=== PATIENT | male | born 1980 | race American Indian/Alaskan Native ===

== ENCOUNTER 2017-07-01 12:47 | Emergency (ER) | payer BC ==
[2017-07-01 14:35] VITALS: BP 138/96
--- NOTE | 2017-07-01 15:51 | Emergency Department Report ---
HPI - General Chief Complaint: Dental/Oral Time Seen by Provider: 07/01/17 15:50 - HPI HPI: Patient reported that he has a dental abscess as been ongoing for the last 2-3 days. He said he woke up with swelling today to his right facial area. Pain is 10 out of 10 and achy and worse with talking and eating. Denies any fever or chills. Denies any nausea or vomiting. Denies any sore throat, difficulty swallowing, swollen tongue or drooling. Denies any chest pain or shortness of breath. Denies any nasal congestion or sinus pain or pressure. Denies any headache. Patient said he took [id number] Motrin but it does not open. ED Past Medical Hx - Past Medical History Previous Medical History?: No - Surgical History Past Surgical History?: No - Family History Family history: no significant - Social History Smoking Status: Current Every Day Smoker Substance Use Type: None - Medications Home Medications: Home Medications Medication Instructions Recorded Confirmed Last Taken Type Acetaminophen/Codeine [Tylenol 1 tab PO Q6H PRN 5 Days #20 tab 07/01/17 Unknown Rx /Codeine # 3 tab] Ibuprofen [Motrin] 800 mg PO Q8HR PRN 7 Days #21 07/01/17 Unknown Rx tablet Penicillin V Potassium 500 mg PO Q8H 10 Days #30 tablet 07/01/17 Unknown Rx ED Review of Systems ROS: Stated complaint: MOUTH PAIN Other details as noted in HPI Comment: All other systems reviewed and negative Constitutional: no symptoms reported Eyes: denies: eye pain, eye discharge ENT: dental pain, other (dental abscess). denies: ear pain, throat pain, hearing loss, congestion Respiratory: no symptoms reported Cardiovascular: denies: chest pain, palpitations, edema, syncope Gastrointestinal: denies: abdominal pain, nausea, vomiting, diarrhea, constipation Musculoskeletal: denies: back pain, joint swelling, arthralgia, myalgia Skin: denies: rash Neurological: denies: headache, weakness, abnormal gait, vertigo Physical Exam - Physical Exam Vital Signs: Vital Signs 07/01/17 14:33 Temperature 98.7 F Pulse Rate 86 Respiratory 18 Rate Blood Pressure 138/96 O2 Sat by Pulse 100 Oximetry General: This is a 37-year-old male well-nourished well-developed in no acute distress Physical Exam: Head: Normocephalic, atraumatic, no abrasion, no bruising and no contusion. Eyes: Biateral pupils equal and reactive to light, bilateral EOM intact.. Bilateral conjunctival and sclera without injection, normal accommodation. No nystagmus Ears: Bilateral TMs pearly morales, bilateral nasal mucosa normal without any drainage. No maxillary or frontal sinus tenderness. No mastoid bone tenderness. Bilateral tract is nontender to palpate Mouth: Moist, no pharyngeal exudate or erythema. Uvula is midline and tongue is normal. Oral airways patent. Patient with mild gingival inflammation and tenderness to palpation around tooth #2 and 3. Positive induration and cellulitis induration noted. Positive facial swelling and multiple dental caries. Neck: Supple, No Cervical adenopathy, full range of motion and no C-spine tenderness. No swelling or tracheal deviation normal reflexes Cardiovascular: S1, S2. Regular rate and rhythm. No murmur. Capillary refill is less then 3 seconds. Lungs: Clear to auscultate bilaterally. No rhonchi, wheezes or rales. No chest wall tenderness Extremities: No clubbing, cyanosis or edema. +2 pulses. No neurovascular compromise Skin: Clean, dry and intact. No rash or lesions. ED Course Vital Signs 07/01/17 14:33 Temperature 98.7 F Pulse Rate 86 Respiratory 18 Rate Blood Pressure 138/96 O2 Sat by Pulse 100 Oximetry - Reevaluation(s) Reevaluation #1: 07/01/17 17:44 Patient given Rocephin 1 g IM without any adverse reaction. He was also given [place] 5/325 2 tablets by mouth in the emergency room for pain. 07/01/17 17:44 ED Medical Decision Making - Medical Decision Making ED course: She is here complaining of toothache and tooth abscess that is ongoing for the last 2-3 days but he said he is having right facial swelling when he woke up this morning. Complaining of pain to right upper back tooth tended to 10. Patient does not have a dentist. Physical findings for gingivitis, dental caries, tooth abscess. Patient with poor oral care and he does not visit a dentist. He said the last time he presented to dentist was years ago. I discussed with patient that he will need to follow-up with a dentist to fix underlying cause of dental abnormality. Patient was given Rocephin 1 g IM in the emergency room, [place] 5/325 2 tablets by mouth and will be referred to [facility] for further management. Patient discharged home in stable condition with prescription for penicillin VK, Tylenol No. 3 and Motrin. Critical care attestation.: If time is entered above; I have spent that time in minutes in the direct care of this critically ill patient, excluding procedure time. ED Disposition Clinical Impression: Dental abscess, Toothache, Dental caries, Gingivitis Disposition: TO HOME OR SELFCARE Is pt being admited?: No Does the pt Need Aspirin: No Condition: Stable Instructions: Dental Abscess (ED), Toothache (ED), Dental Caries (ED), Gingivitis (ED) Additional Instructions: You have gum disease, dental caries and tooth abscess which is cause by poor oral care. Please gargle with Listerine twice daily, please floss twice daily and take antibiotic as prescribed. You will need to follow-up with [facility] for further evaluation and treatment of multiple dental abnormalities. Please refer to discharge instruction paperwork for phone number and address. Reason not drive or operate heavy machinery while taking in Tylenol No. 3 as this medication causes drowsiness Prescriptions: Acetaminophen/Codeine [Tylenol /Codeine # 3 tab] 1 tab PO Q6H PRN 5 Days #20 tab PRN Reason: Toothache Ibuprofen [Motrin] 800 mg PO Q8HR PRN 7 Days #21 tablet PRN Reason: Pain Penicillin V Potassium 500 mg PO Q8H 10 Days #30 tablet Referrals: PRIMARY CARE, [Primary Care Provider] - 2-3 Days [facility] [Outside] - 2-3 Days Forms: Work/School Release Form(ED), Accompanied Note
[2017-07-01] MEDS ORDERED: XYLOCAINE 1% MPF 5 mL INFILTRATI ONE (16:14)
[2017-07-01] MEDS ORDERED: ROCEPHIN IM STA (16:14)
[2017-07-01] MEDS ORDERED: NORCO 5/325 PO ONE (16:15)
== END 2017-07-01 18:03 | disposition home or self-care (01) ==
LOC: ED 12:47
DX: K04.7 Periapical abscess without sinus (principal); K02.9 Dental caries, unspecified; K05.10 Chronic gingivitis, plaque induced; F17.200 Nicotine dependence, unspecified, uncomplicated
CPT/HCPCS: 96372; 99282; J0696

== ENCOUNTER 2020-10-07 07:00 | Inpatient (IN) | payer BC ==
[2020-10-07] MEDS ORDERED: ONDANSETRON 4 MG/2 ML INJ IV ONE (07:25)
[2020-10-07] MEDS ORDERED: PANTOPRAZOLE 40 MG INJ IV ONE (07:25)
[2020-10-07] MEDS ORDERED: HYDROmorphone 1 MG/1 ML INJ IV ONE ×2 (07:25→08:43)
--- NOTE | 2020-10-07 07:29 | Emergency Department Report ---
ED Abdominal Pain HPI - General Chief Complaint: Abdominal Pain Stated Complaint: NERISSA/ABD PAIN PUI?: No Time Seen by Provider: 10/07/20 07:24 Source: patient Mode of arrival: Ambulatory Limitations: No Limitations - History of Present Illness Initial Comments: Chief complaint: "I think my pancreas is acting up." HPI: This is a 40-year-old male with history of pancreatitis and DVT who presents with epigastric pain for the last 2 days. Pain is severe sharp radiating to the back. He also has abdominal bloating. Pain also radiates to the chest. He has nausea. Poor appetite. He had one flareup of pancreatitis 1 year ago. At that time told him that it was alcohol related. He continues to binge drink on the weekends. However he does not drink daily. He does drink a copious amount of alcohol when he does have a binge. Patient thinks his poor diet may have caused pancreatitis flareup. He had fried food recently. He does not take any medications. He was not prescribed anticoagulation when he was discharged from the hospital. He was admitted to [facility] for pancreatitis last year. At that time he underwent 2 surgeries at the back of his knees for "blood clots". Patient does smoke tobacco. He denies the use of recreational drugs. He does not have a PCP. He works as a trash truck driver. Complaint: abdominal pain -: Gradual, days(s) (2 days) Location: epigastric Radiation: back, chest Severity: severe Severity scale (0 -10): 10 Quality: aching, sharp Consistency: constant Improves With: nothing Worsens With: nothing Associated Symptoms: nausea, anorexia - Related Data Previous Rx's Medication Instructions Recorded Last Taken Type Acetaminophen/Codeine [Tylenol 1 tab PO Q6H PRN 5 Days #20 tab 07/01/17 Unknown Rx /Codeine # 3 tab] Ibuprofen [Motrin] 800 mg PO Q8HR PRN 7 Days #21 07/01/17 Unknown Rx tablet Penicillin V Potassium 500 mg PO Q8H 10 Days #30 tablet 07/01/17 Unknown Rx Allergies Allergy/AdvReac Type Severity Reaction Status Date / Time No Known Allergies Allergy Unverified 07/01/17 14:35 ED Review of Systems ROS: Stated complaint: NERISSA/ABD PAIN Other details as noted in HPI Comment: All other systems reviewed and negative Constitutional: denies: chills, fever, malaise Respiratory: denies: cough, shortness of breath Gastrointestinal: abdominal pain, nausea. denies: diarrhea, constipation ED Past Medical Hx - Past Medical History Previous Medical History?: Yes Additional medical history: Pancreatitis. blood clot - Surgical History Past Surgical History?: Yes Additional Surgical History: To remove blood clot 03/2020 - Family History Family history: hypertension - Social History Smoking Status: Current Every Day Smoker Substance Use Type: Alcohol - Medications Home Medications: Home Medications Medication Instructions Recorded Confirmed Last Taken Type Acetaminophen/Codeine [Tylenol 1 tab PO Q6H PRN 5 Days #20 tab 07/01/17 Unknown Rx /Codeine # 3 tab] Ibuprofen [Motrin] 800 mg PO Q8HR PRN 7 Days #21 07/01/17 Unknown Rx tablet Penicillin V Potassium 500 mg PO Q8H 10 Days #30 tablet 07/01/17 Unknown Rx ED Physical Exam - General Limitations: No Limitations General appearance: alert, in no apparent distress - Head Head exam: Present: atraumatic, normocephalic - Eye Eye exam: Present: normal appearance - ENT ENT exam: Present: mucous membranes moist - Neck Neck exam: Present: normal inspection, full ROM - Respiratory Respiratory exam: Present: normal lung sounds bilaterally. Absent: respiratory distress, wheezes, rhonchi - Cardiovascular Cardiovascular Exam: Present: regular rate, normal rhythm, normal heart sounds. Absent: systolic murmur, diastolic murmur, rubs, gallop - GI/Abdominal GI/Abdominal exam: Present: soft, normal bowel sounds. Absent: distended, tenderness, guarding, rebound - Rectal Rectal exam: Present: deferred - Extremities Exam Extremities exam: Present: normal inspection - Neurological Exam Neurological exam: Present: alert, oriented X3 - Psychiatric Psychiatric exam: Present: normal affect, normal mood - Skin Skin exam: Present: warm, dry, intact, normal color. Absent: rash ED Course Vital Signs 10/07/20 10/07/20 10/07/20 07:09 08:32 09:47 Temperature 97.6 F 98.2 F Pulse Rate 117 H 88 82 Respiratory 18 24 18 Rate Blood Pressure 139/99 Blood Pressure 117/88 121/84 [Left] O2 Sat by Pulse 100 97 100 Oximetry ED Medical Decision Making - Lab Data Result diagrams: 10/07/20 07:46 10/07/20 07:46 - Radiology Data Radiology results: report reviewed, image reviewed CT abdomen pelvis with IV contrast radiology impression: Acute severe pancreatitis as above with a probable pseudocyst along the pancreatic head/uncinate process and no other associated complication Pancreas findings: Generalized edema is noted on the prior periods with marked surrounding fat stranding. A simple cystic structure is seen along the pancreatic head/uncinate processs measuring up to 2.8 cm x 2.6 cm, no internal gas or suspicious peripheral enhancement is seen to suggest an abscess. A pseudocyst is favored. Peripancreatic edema/inflammation extends along the anterior pararenal spaces and along the pericolic gutters. HERNANDO Score 0-1: LDH not obtained with initial labs - Medical Decision Making 1. Acute pancreatitis with pseudocyst presumably initially alcoholic in etiology with history of binge drinking. Patient has severe pain. Markedly elevated lipase 1028. Hepatic panel otherwise unremarkable with exception of mild hyporproteinemia hypoalbuminemia 2. Dehydration noted with severe volume contraction elevated hemoglobin elevated hematocrit, hyponatremia, hypokalemia hypochloremia. Critical care attestation.: If time is entered above; I have spent that time in minutes in the direct care of this critically ill patient, excluding procedure time. ED Disposition Clinical Impression: Acute pancreatitis, Acute dehydration, Pancreatic pseudocyst Disposition: OP ADMIT IP TO THIS HOSP Is pt being admited?: Yes Does the pt Need Aspirin: No Condition: Fair
[2020-10-07 08:19] LABS: Basophils % (Auto) 0.1 % (0.0-1.8); Eosinophils # (Auto) 0.1 K/mm3 (0.0-0.4); Eosinophils % (Auto) 1.1 % (0.0-4.3); Hematocrit 49.5 % (35.5-45.6); Hemoglobin 16.8 gm/dl (11.8-15.2); Lymphocytes # (Auto) 0.7 K/mm3 (1.2-5.4); Lymphocytes % (Auto) 6.3 % (13.4-35.0); Mean Corpuscular HGB Conc 34 % (32-34); Mean Corpuscular Volume 97 fl (84-94); Monocytes # (Auto) 0.6 K/mm3 (0.0-0.8); Monocytes % (Auto) 4.9 % (0.0-7.3); Platelet Count 298 K/mm3 (140-440); Red Blood Count 5.13 M/mm3 (3.65-5.03); Red Cell Distribution Width 16.2 % (13.2-15.2)
[2020-10-07 08:36] LABS: Alanine Aminotransferase 19 units/L (7-56); Albumin 3.7 g/dL (3.9-5); BUN/Creatinine Ratio 6; Bilirubin,Direct < 0.2 mg/dL (0-0.2); Blood Urea Nitrogen 5 mg/dL (9-20); Calcium 8.9 mg/dL (8.4-10.2); Hemolysis Index 12
[2020-10-07] MEDS ORDERED: SODIUM CHLORIDE 0.9% 1000 ML 1,000 ML IV ONE (08:41)
--- NOTE | 2020-10-07 09:51 | Cat Scan Report ---
CT ABDOMEN AND PELVIS WITH CONTRAST INDICATION / CLINICAL INFORMATION: Epigastric pain, history of pancreatitis. TECHNIQUE: Axial CT images were obtained through the abdomen and pelvis after 100 cc Omnipaque [address] scans at this location are performed using CT dose reduction for ALARA by means of automated exposure control. COMPARISON: None available. FINDINGS: LOWER CHEST: Mild dependent atelectasis is noted bilaterally without other significant abnormalities. LIVER: No significant abnormality. GALLBLADDER: No significant abnormality. BILE DUCTS: No significant abnormality. PANCREAS: Generalized edema is noted along the pancreas with marked surrounding fat stranding. A simp le cystic structure is seen along the pancreatic head/uncinate process measuring up to 2.8 x 2.6 cm i n axial dimensions on image 28 of series 4 with a craniocaudal dimension of 5.4 cm on image 59 of ser ies 601. No internal gas or suspicious peripheral enhancement is seen to suggest an abscess. A pseudo cyst is favored. Peripancreatic edema/inflammation extends along the anterior pararenal spaces and al carlton the paracolic gutters. No other significant abnormality. SPLEEN: No significant abnormality. ADRENALS: No significant abnormality. RIGHT KIDNEY / URETER: No significant abnormality. LEFT KIDNEY / URETER: No significant abnormality. STOMACH / SMALL BOWEL: No significant abnormality. COLON: No significant abnormality. APPENDIX: No significant abnormality. PERITONEUM: No free fluid. No free air. No fluid collection. LYMPH NODES: No significant adenopathy. AORTA / ARTERIES: Mild generalized atherosclerosis without other significant abnormalities. IVC / VEINS: No significant abnormality. URINARY BLADDER: No significant abnormality. REPRODUCTIVE ORGANS: No significant abnormality. ADDITIONAL FINDINGS: None. SKELETAL SYSTEM: No significant abnormality. IMPRESSION: Acute severe pancreatitis as above with a probable pseudocyst along the pancreatic head/uncinate proc ess and no other associated complication. Signer Name: Jose Schroeder MD Signed: 10/07/2020 9:46 AM Workstation Name: [id number]
[2020-10-07] MEDS ORDERED: HYDROmorphone 1 MG/1 ML INJ ONE (11:43)
[2020-10-07] MEDS: HYDROmorphone 1 MG/1 ML INJ IV PRN (11:58)
[2020-10-07] MEDS ORDERED: KETOROLAC 30 MG/1 ML INJ IV ONE (12:09)
--- NOTE | 2020-10-07 13:23 | History and Physical Report ---
History of Present Illness Date of examination: 10/07/20 Date of admission: 10/07/20 10:27 Chief complaint: Abdominal pain and bloating for the last 2 days History of present illness: 40-year-old male with history of pancreatitis and DVT who presents with epigastric pain for the last 2 days. Pain is severe sharp radiating to the back. He also has abdominal bloating. Pain also radiates to the chest. He has nausea. Poor appetite. He had one flareup of pancreatitis 1 year ago. At that time told him that it was alcohol related. He continues to binge drink on the weekends. However he does not drink daily. He does drink a copious amount of alcohol when he does have a binge. Patient thinks his poor diet may have caused pancreatitis flareup. He had fried food recently. He does not take any medications. He was not prescribed anticoagulation when he was discharged from the hospital. He was admitted to [facility] for pancreatitis last year. At that time he underwent 2 surgeries at the back of his knees for "blood clots". Patient does smoke tobacco. He denies the use of recreational drugs. He does not have a PCP. He works as a courier delivery driver. Initial evaluation in the emergency room is consistent with severe acute pancrea titis, elevated lipase CT abdomen, acute pancreatitis with possible pseudocyst Patient has history of pancreatitis in the past Past History Past Medical History: DVT (History of DVT), other (History of pancreatitis) Past Surgical History: Other (Removal of blood clots 2020) Social history: smoking. denies: alcohol abuse, prescription drug abuse Family history: no significant family history Medications and Allergies Allergies Allergy/AdvReac Type Severity Reaction Status Date / Time No Known Allergies Allergy Unverified 07/01/17 14:35 Home Medications Medication Instructions Recorded Confirmed Last Taken Type Acetaminophen/Codeine [Tylenol 1 tab PO Q6H PRN 5 Days #20 tab 07/01/17 Unknown Rx /Codeine # 3 tab] Ibuprofen [Motrin] 800 mg PO Q8HR PRN 7 Days #21 07/01/17 Unknown Rx tablet Penicillin V Potassium 500 mg PO Q8H 10 Days #30 tablet 07/01/17 Unknown Rx Active Meds: Active Medications Hydromorphone HCl (Hydromorphone 1 Mg/1 Ml Inj) 0.5 mg IV ONCE PRN PRN Reason: Pain , Severe (7-10) Review of Systems Constitutional: no weight loss, no weight gain, no fever, no chills Ears, nose, mouth and throat: no nasal congestion, no nasal discharge Cardiovascular: no chest pain, no palpitations Respiratory: no cough, no shortness of breath Gastrointestinal: abdominal pain, nausea, vomiting Genitourinary Male: no dysuria, no hematuria Musculoskeletal: no myalgias, no arthritis Integumentary: no rash, no lesions Neurological: no seizures, no syncope Psychiatric: no anxiety, no depression Endocrine: no cold intolerance, no heat intolerance Hematologic/Lymphatic: no easy bruising, no easy bleeding Allergic/Immunologic: no urticaria, no allergic rhinitis Exam - Constitutional Vitals: Temp Pulse Resp BP Pulse Ox 98.1 F 104 H 18 142/92 98 10/07/20 12:05 10/07/20 12:05 10/07/20 12:05 10/07/20 12:05 10/07/20 12:05 General appearance: Present: no acute distress, well-nourished - EENT Eyes: Present: PERRL, EOM intact - Neck Neck: Present: supple, normal ROM - Respiratory Respiratory effort: normal Respiratory: bilateral: diminished, negative: rales, rhonchi, wheezing - Cardiovascular Rhythm: regular Heart Sounds: Present: S1 & S2 - Extremities Extremities: no ischemia, No edema - Abdominal General gastrointestinal: Present: soft, tender (No guarding no rigidity), non- distended, normal bowel sounds - Integumentary Integumentary: Present: clear, warm - Musculoskeletal Musculoskeletal: strength equal bilaterally - Psychiatric Psychiatric: appropriate mood/affect, cooperative - Neurologic Neurologic: CNII-XII intact, moves all extremities Results - Labs CBC & Chem 7: 10/07/20 07:46 10/07/20 07:46 Labs: Abnormal lab results 10/07/20 10/07/20 Range/Units 07:46 07:46 WBC 11.7 H (4.5-11.0) K/mm3 RBC 5.13 H (3.65-5.03) M/mm3 Hgb 16.8 H (11.8-15.2) gm/dl Hct 49.5 H (35.5-45.6) % MCV 97 H (84-94) fl MCH 33 H (28-32) pg RDW 16.2 H (13.2-15.2) % Lymph % (Auto) 6.3 L (13.4-35.0) % Lymph # (Auto) 0.7 L (1.2-5.4) K/mm3 Seg Neutrophils % 87.6 H (40.0-70.0) % Seg Neutrophils # 10.3 H (1.8-7.7) K/mm3 Sodium 134 L (137-145) mmol/L Potassium 3.2 L (3.6-5.0) mmol/L Chloride 96.1 L (98-107) mmol/L BUN 5 L (9-20) mg/dL Glucose 126 H (75-100) mg/dL Total Protein 6.2 L (6.3-8.2) g/dL Albumin 3.7 L (3.9-5) g/dL Lipase 1028 H (13-60) units/L Assessment and Plan --Severe acute pancreatitis; N.p.o., IV fluids, pain medications Check abdominal ultrasound to rule out Gallbladder pancreatitis GI consult --Possible pancreatic pseudocyst; Supportive care, GI and surgery consult --Hyponatremia; Normal saline IV fluids Closely monitor electrolytes --Hypokalemia; Replenish with KCl Monitor electrolytes --Leukocytosis; Due to inflammatory process acute pancreatitis Closely monitor --Dehydration; IV fluids, supportive care --Polycythemia Elevated H&H Probably secondary to dehydration Closely monitor --Ongoing tobacco use; Smoking cessation Nicotine patch as needed Closely monitor patient and adjust management as needed Plan of care reviewed with the patient and his nurse
[2020-10-07] MEDS ORDERED: ONDANSETRON 4 MG/2 ML INJ IV PRN (16:00)
[2020-10-07] MEDS: MORPHINE 2 MG/1 ML INJ IV PRN ×2 (16:40→20:54)
[2020-10-07] MEDS: SODIUM CHLORIDE 0.9% 1000 ML 1,000 ML IV SCH (16:41)
--- NOTE | 2020-10-07 20:00 | Consultation ---
History of Present Illness Consult date: 10/07/20 Reason for consult: abdominal pain - History of present illness History of present illness: 40 yo male with 2 day h/o epigastric pain radiating to his back. He has had similar pain one year ago and this was attributed to alcoholic pancreatitis. Pt continues to drink but he states he has not had any alcohol for 3 weeks. He denies any h/o gallbladder disease, familial pancreatitis, hypertriglyceridemia or thiazide drug use. Last BM was yesterday. He is not hungry and doesn't want liquids right now. Past History Past Medical History: DVT (History of DVT), other (History of pancreatitis) Past Surgical History: Other (Removal of blood clots 2019) Social history: smoking. denies: alcohol abuse, prescription drug abuse Family history: no significant family history Medications and Allergies Allergies Allergy/AdvReac Type Severity Reaction Status Date / Time No Known Allergies Allergy Unverified 07/01/17 14:35 Home Medications Medication Instructions Recorded Confirmed Last Taken Type Acetaminophen/Codeine [Tylenol 1 tab PO Q6H PRN 5 Days #20 tab 07/01/17 Unknown Rx /Codeine # 3 tab] Ibuprofen [Motrin] 800 mg PO Q8HR PRN 7 Days #21 07/01/17 Unknown Rx tablet Penicillin V Potassium 500 mg PO Q8H 10 Days #30 tablet 07/01/17 Unknown Rx Active Meds: Active Medications Hydromorphone HCl (Hydromorphone 1 Mg/1 Ml Inj) 0.5 mg IV ONCE PRN PRN Reason: Pain , Severe (7-10) Sodium Chloride (Nacl 0.9% 1000 Ml) 1,000 mls @ 100 mls/hr IV DIRECT LALITA Last Admin: 10/07/20 16:41 Dose: 100 mls/hr Documented by: Morphine Sulfate (Morphine 2 Mg/1 Ml Inj) 2 mg IV Q4H PRN PRN Reason: Pain, Moderate (4-6) Last Admin: 10/07/20 16:40 Dose: 2 mg Documented by: Ondansetron HCl (Ondansetron 4 Mg/2 Ml Inj) 4 mg IV Q4H PRN PRN Reason: Nausea And Vomiting Pantoprazole Sodium (Pantoprazole 40 Mg Inj) 40 mg IV QDAY LALITA Review of Systems All systems: negative (There is no prior h/o DT's.) Exam Vital Signs Temp Pulse Resp BP Pulse Ox 97.6 F 117 H 18 139/99 100 10/07/20 07:09 10/07/20 07:09 10/07/20 07:09 10/07/20 07:09 10/07/20 07:09 - General physical appearance Positive: well developed, well nourished, no distress - Eyes Positive: PERRL, normal occular movement - ENT Positive: normal pinna, normal nares, normal mucosa, no hearing loss, no congestion - Neck Positive: no masses, no bruits, trachea midline, no venous distension - Respiratory Positive: normal expansion, normal respiratory effort, clear to auscultation - Cardiovascular Rhythm: regular Heart Sounds: Present: S1 & S2. Absent: rub, click - Extremities Extremities: no ischemia, pulses symmetrical, No edema - Breasts Breasts: normal, no mass, no skin changes - Abdomen Abdomen: Present: soft, bowel sounds hypoactive (There is mild epigastric tenderness without rebound or guarding.). Absent: distended Hernia: none - Genitourinary Male Genitourinary: normal Female Genitourinary: normal - Integumentary no rash, no growths, no abnormal pigmentation - Neurologic Neurologic: alert and oriented to time, place and person, motor strength and sensation are grossly intact - Musculoskeletal normal gait, normal posture - Psychiatric Psychiatric: appropriate mood/affect, intact judgment & insight Results - Labs 10/07/20 07:46 10/07/20 07:46 Abnormal lab results 10/07/20 10/07/20 Range/Units 07:46 07:46 WBC 11.7 H (4.5-11.0) K/mm3 RBC 5.13 H (3.65-5.03) M/mm3 Hgb 16.8 H (11.8-15.2) gm/dl Hct 49.5 H (35.5-45.6) % MCV 97 H (84-94) fl MCH 33 H (28-32) pg RDW 16.2 H (13.2-15.2) % Lymph % (Auto) 6.3 L (13.4-35.0) % Lymph # (Auto) 0.7 L (1.2-5.4) K/mm3 Seg Neutrophils % 87.6 H (40.0-70.0) % Seg Neutrophils # 10.3 H (1.8-7.7) K/mm3 Sodium 134 L (137-145) mmol/L Potassium 3.2 L (3.6-5.0) mmol/L Chloride 96.1 L (98-107) mmol/L BUN 5 L (9-20) mg/dL Glucose 126 H (75-100) mg/dL Total Protein 6.2 L (6.3-8.2) g/dL Albumin 3.7 L (3.9-5) g/dL Lipase 1028 H (13-60) units/L Diabetes panel 10/07/20 Range/Units 07:46 Sodium 134 L (137-145) mmol/L Potassium 3.2 L (3.6-5.0) mmol/L Chloride 96.1 L (98-107) mmol/L Carbon Dioxide 29 (22-30) mmol/L BUN 5 L (9-20) mg/dL Creatinine 0.8 (0.8-1.3) mg/dL Glucose 126 H (75-100) mg/dL Calcium 8.9 (8.4-10.2) mg/dL AST 10 (5-40) units/L ALT 19 (7-56) units/L Alkaline Phosphatase 116 (35-129) units/L Total Protein 6.2 L (6.3-8.2) g/dL Albumin 3.7 L (3.9-5) g/dL Calcium panel 10/07/20 Range/Units 07:46 Calcium 8.9 (8.4-10.2) mg/dL Albumin 3.7 L (3.9-5) g/dL Pituitary panel 10/07/20 Range/Units 07:46 Sodium 134 L (137-145) mmol/L Potassium 3.2 L (3.6-5.0) mmol/L Chloride 96.1 L (98-107) mmol/L Carbon Dioxide 29 (22-30) mmol/L BUN 5 L (9-20) mg/dL Creatinine 0.8 (0.8-1.3) mg/dL Glucose 126 H (75-100) mg/dL Calcium 8.9 (8.4-10.2) mg/dL Adrenal panel 10/07/20 Range/Units 07:46 Sodium 134 L (137-145) mmol/L Potassium 3.2 L (3.6-5.0) mmol/L Chloride 96.1 L (98-107) mmol/L Carbon Dioxide 29 (22-30) mmol/L BUN 5 L (9-20) mg/dL Creatinine 0.8 (0.8-1.3) mg/dL Glucose 126 H (75-100) mg/dL Calcium 8.9 (8.4-10.2) mg/dL Total Bilirubin 0.50 (0.1-1.2) mg/dL AST 10 (5-40) units/L ALT 19 (7-56) units/L Alkaline Phosphatase 116 (35-129) units/L Total Protein 6.2 L (6.3-8.2) g/dL Albumin 3.7 L (3.9-5) g/dL - Imaging CT scan - abdomen: report reviewed CT scan - pelvis: report reviewed Additional studies: Lipase was 1,000. Assessment and Plan - Patient Problems (1) Chronic alcoholic pancreatitis Current Visit: Yes Status: Acute Plan to address problem: 1) NPO for now 2) Pt was informed that if he continues to drink, it could result in significant morbidity and even . 3) Antibiotics and surgery are not indicated at this time.
[2020-10-07] MEDS ORDERED: LORazepam 2 MG/ML VIAL IV ONE (22:07)
[2020-10-08] MEDS: MORPHINE 2 MG/1 ML INJ IV PRN ×5 (00:19→20:23)
[2020-10-08] MEDS: SODIUM CHLORIDE 0.9% 1000 ML 1,000 ML IV SCH ×2 (04:32→17:49)
[2020-10-08 06:16] LABS: Basophils % (Auto) 0.3 % (0.0-1.8); Eosinophils # (Auto) 0.3 K/mm3 (0.0-0.4); Eosinophils % (Auto) 2.7 % (0.0-4.3); Hematocrit 45.8 % (35.5-45.6); Hemoglobin 15.6 gm/dl (11.8-15.2); Lymphocytes # (Auto) 0.8 K/mm3 (1.2-5.4); Lymphocytes % (Auto) 6.5 % (13.4-35.0); Mean Corpuscular HGB Conc 34 % (32-34); Mean Corpuscular Volume 95 fl (84-94); Monocytes # (Auto) 0.9 K/mm3 (0.0-0.8); Monocytes % (Auto) 6.9 % (0.0-7.3); Platelet Count 297 K/mm3 (140-440); Red Blood Count 4.83 M/mm3 (3.65-5.03); Red Cell Distribution Width 16.4 % (13.2-15.2)
[2020-10-08 06:39] LABS: Alanine Aminotransferase 11 units/L (7-56); Blood Urea Nitrogen 7 mg/dL (9-20); Calcium 8.3 mg/dL (8.4-10.2); Hemolysis Index 4
[2020-10-08 07:01] LABS: BUN/Creatinine Ratio 10
[2020-10-08] MEDS: PANTOPRAZOLE 40 MG INJ IV SCH (11:16)
--- NOTE | 2020-10-08 11:51 | Progress Note ---
Assessment and Plan - Patient Problems (1) Chronic alcoholic pancreatitis Current Visit: Yes Status: Acute Plan to address problem: 1) Sips of clear liquids 2) I again told the pt that he CANNOT drink in the future. Subjective Date of service: 10/08/20 Patient Reports: Positive: no new complaints (Abdominal pain is about the same. Has minimal nausea without vomiting.) Objective Vital Signs - 12hr 10/08/20 10/08/20 00:55 04:30 Temperature 99 F 98.4 F Pulse Rate 110 H 91 H Respiratory 18 18 Rate Blood Pressure 139/97 134/95 [Left] O2 Sat by Pulse 98 98 Oximetry - Abdomen soft, bowel sounds hypoactive (+ minimal epigastric tenderness without rebound or guarding.) - Labs 10/08/20 06:05 10/08/20 06:05 Diabetes panel 10/08/20 Range/Units 06:05 Sodium 136 L (137-145) mmol/L Potassium 3.5 L (3.6-5.0) mmol/L Chloride 100.0 (98-107) mmol/L Carbon Dioxide 28 (22-30) mmol/L BUN 7 L (9-20) mg/dL Creatinine 0.7 L (0.8-1.3) mg/dL Glucose 123 H (75-100) mg/dL Calcium 8.3 L (8.4-10.2) mg/dL AST 7 (5-40) units/L ALT 11 (7-56) units/L Alkaline Phosphatase 100 (35-129) units/L Total Protein 5.8 L (6.3-8.2) g/dL Albumin 3.0 L (3.9-5) g/dL Calcium panel 10/08/20 Range/Units 06:05 Calcium 8.3 L (8.4-10.2) mg/dL Albumin 3.0 L (3.9-5) g/dL Pituitary panel 10/08/20 Range/Units 06:05 Sodium 136 L (137-145) mmol/L Potassium 3.5 L (3.6-5.0) mmol/L Chloride 100.0 (98-107) mmol/L Carbon Dioxide 28 (22-30) mmol/L BUN 7 L (9-20) mg/dL Creatinine 0.7 L (0.8-1.3) mg/dL Glucose 123 H (75-100) mg/dL Calcium 8.3 L (8.4-10.2) mg/dL Adrenal panel 10/08/20 Range/Units 06:05 Sodium 136 L (137-145) mmol/L Potassium 3.5 L (3.6-5.0) mmol/L Chloride 100.0 (98-107) mmol/L Carbon Dioxide 28 (22-30) mmol/L BUN 7 L (9-20) mg/dL Creatinine 0.7 L (0.8-1.3) mg/dL Glucose 123 H (75-100) mg/dL Calcium 8.3 L (8.4-10.2) mg/dL Total Bilirubin 0.40 (0.1-1.2) mg/dL AST 7 (5-40) units/L ALT 11 (7-56) units/L Alkaline Phosphatase 100 (35-129) units/L Total Protein 5.8 L (6.3-8.2) g/dL Albumin 3.0 L (3.9-5) g/dL
--- NOTE | 2020-10-08 12:15 | Progress Note ---
Assessment and Plan Assessment and plan: --Severe acute pancreatitis; N.p.o., IV fluids, pain medications Check abdominal ultrasound to rule out Gallstone pancreatitis Lipase amylase trending down Follow GI evaluation and recommendations --Possible pancreatic pseudocyst; Supportive care, GI and surgery consult Surgery evaluation noted and appreciated --Hyponatremia; Normal saline IV fluids Mild improvement of sodium levels closely monitor --Hypokalemia; Replenish with KCl Monitor electrolytes --Leukocytosis; Due to inflammatory process acute pancreatitis Treat the underlying cause --Dehydration; IV fluids, supportive care --Polycythemia Elevated H&H Probably secondary to dehydration Mild improvement --Ongoing tobacco use; Smoking cessation Nicotine patch as needed Closely monitor patient and adjust management as needed Plan of care reviewed with the patient and his nurse History Interval history: I have seen and examined the patient at the bedside Patient's chart and medications reviewed Surgery evaluation and recommendations noted and appreciated Started the patient on clear liquids Patient continues to have abdominal pain Lipase and amylase trending down Vital signs noted Hospitalist Physical - Constitutional Vitals: Temp Pulse Resp BP Pulse Ox 98.4 F 91 H 18 134/95 98 10/08/20 04:30 10/08/20 04:30 10/08/20 04:30 10/08/20 04:30 10/08/20 04:30 General appearance: Present: no acute distress, well-nourished - EENT Eyes: Present: PERRL, EOM intact - Neck Neck: Present: supple, normal ROM - Respiratory Respiratory effort: normal Respiratory: bilateral: diminished, negative: rales, rhonchi, wheezing - Cardiovascular Rhythm: regular Heart Sounds: Present: S1 & S2 - Extremities Extremities: no ischemia, No edema - Abdominal General gastrointestinal: soft, tender (No guarding rigidity), non-distended, normal bowel sounds - Integumentary Integumentary: Present: clear, warm - Psychiatric Psychiatric: appropriate mood/affect, cooperative - Neurologic Neurologic: moves all extremities Results - Labs CBC & Chem 7: 10/08/20 06:05 10/08/20 06:05 Labs: Laboratory Last Values WBC 12.7 K/mm3 (4.5-11.0) H 10/08/20 06:05 RBC 4.83 M/mm3 (3.65-5.03) 10/08/20 06:05 Hgb 15.6 gm/dl (11.8-15.2) H 10/08/20 06:05 Hct 45.8 % (35.5-45.6) H 10/08/20 06:05 MCV 95 fl (84-94) H 10/08/20 06:05 MCH 32 pg (28-32) 10/08/20 06:05 MCHC 34 % (32-34) 10/08/20 06:05 RDW 16.4 % (13.2-15.2) H 10/08/20 06:05 Plt Count 297 K/mm3 (140-440) 10/08/20 06:05 Lymph % (Auto) 6.5 % (13.4-35.0) L 10/08/20 06:05 [place] % (Auto) 6.9 % (0.0-7.3) 10/08/20 06:05 Eos % (Auto) 2.7 % (0.0-4.3) 10/08/20 06:05 Baso % (Auto) 0.3 % (0.0-1.8) 10/08/20 06:05 Lymph # (Auto) 0.8 K/mm3 (1.2-5.4) L 10/08/20 06:05 [place] # (Auto) 0.9 K/mm3 (0.0-0.8) H 10/08/20 06:05 Eos # (Auto) 0.3 K/mm3 (0.0-0.4) 10/08/20 06:05 Baso # (Auto) 0.0 K/mm3 (0.0-0.1) 10/08/20 06:05 Seg Neutrophils % 83.6 % (40.0-70.0) H 10/08/20 06:05 Seg Neutrophils # 10.6 K/mm3 (1.8-7.7) H 10/08/20 06:05 Sodium 136 mmol/L (137-145) L 10/08/20 06:05 Potassium 3.5 mmol/L (3.6-5.0) L 10/08/20 06:05 Chloride 100.0 mmol/L (98-107) 10/08/20 06:05 Carbon Dioxide 28 mmol/L (22-30) 10/08/20 06:05 Anion Gap 12 mmol/L 10/08/20 06:05 BUN 7 mg/dL (9-20) L 10/08/20 06:05 Creatinine 0.7 mg/dL (0.8-1.3) L 10/08/20 06:05 Estimated GFR > 60 ml/min 10/08/20 06:05 BUN/Creatinine Ratio 10 % 10/08/20 06:05 Glucose 123 mg/dL (75-100) H 10/08/20 06:05 Calcium 8.3 mg/dL (8.4-10.2) L 10/08/20 06:05 Total Bilirubin 0.40 mg/dL (0.1-1.2) 10/08/20 06:05 Direct Bilirubin < 0.2 mg/dL (0-0.2) 10/07/20 07:46 Indirect Bilirubin 0.3 mg/dL 10/07/20 07:46 AST 7 units/L (5-40) 10/08/20 06:05 ALT 11 units/L (7-56) 10/08/20 06:05 Alkaline Phosphatase 100 units/L (35-129) 10/08/20 06:05 Total Protein 5.8 g/dL (6.3-8.2) L 10/08/20 06:05 Albumin 3.0 g/dL (3.9-5) L 10/08/20 06:05 Albumin/Globulin Ratio 1.1 % 10/08/20 06:05 Amylase 1291 units/L (27-131) H 10/08/20 06:05 Lipase 947 units/L (13-60) H 10/08/20 06:05 Morris/IV: Voiding Method Toilet Active Medications - Current Medications Current Medications: Generic Name Dose Route Start Last Admin Trade Name Freq PRN Reason Stop Dose Admin Hydromorphone HCl 0.5 mg 10/07/20 12:10 10/07/20 11:58 Hydromorphone 1 Mg/1 Ml Inj IV 0.5 mg ONCE PRN Administration Pain , Severe (7-10) Sodium Chloride 1,000 mls @ 100 mls/hr 10/07/20 13:30 10/08/20 04:32 Nacl 0.9% 1000 Ml IV 100 mls/hr DIRECT LALITA Administration Morphine Sulfate 2 mg 10/07/20 14:00 10/08/20 08:21 Morphine 2 Mg/1 Ml Inj IV 2 mg Q4H PRN Administration Pain, Moderate (4-6) Ondansetron HCl 4 mg 10/07/20 16:00 Ondansetron 4 Mg/2 Ml Inj IV Q4H PRN Nausea And Vomiting Pantoprazole Sodium 40 mg 10/08/20 10:00 Pantoprazole 40 Mg Inj IV QDAY LALITA
[2020-10-08] MEDS ORDERED: POTASSIUM CHLORIDE 20 MEQ 20 MEQ/100 ML BAG IV ONE (13:06)
[2020-10-08] MEDS: POTASSIUM CHLORIDE 10 MEQ 10 MEQ/100 ML BAG IV SCH ×2 (14:50→17:48)
--- NOTE | 2020-10-08 16:57 | Event Note ---
Date: 10/08/20 Chart reviewed. Consistent with EtOHic pancreatitis. LFTs normal. Pt in shower, so seems to be improving. Will see tomorrow. Meantime, IVFs, Pain control, clears if can tolerate.
[2020-10-08] MEDS: HYDROmorphone 1 MG/1 ML INJ IV PRN (21:33)
[2020-10-09] MEDS ORDERED: diphenhydrAMINE 50 MG/ML VIAL IV ONE (00:45)
[2020-10-09] MEDS: MORPHINE 2 MG/1 ML INJ IV PRN ×3 (00:47→21:57)
[2020-10-09] MEDS: SODIUM CHLORIDE 0.9% 1000 ML 1,000 ML IV SCH ×2 (05:30→15:45)
[2020-10-09 08:25] LABS: Basophils % (Auto) 0.3 % (0.0-1.8); Eosinophils # (Auto) 0.5 K/mm3 (0.0-0.4); Eosinophils % (Auto) 4.8 % (0.0-4.3); Hematocrit 40.7 % (35.5-45.6); Hemoglobin 13.9 gm/dl (11.8-15.2); Lymphocytes # (Auto) 0.8 K/mm3 (1.2-5.4); Lymphocytes % (Auto) 7.5 % (13.4-35.0); Mean Corpuscular HGB Conc 34 % (32-34); Mean Corpuscular Volume 96 fl (84-94); Monocytes # (Auto) 1.1 K/mm3 (0.0-0.8); Monocytes % (Auto) 9.9 % (0.0-7.3); Platelet Count 263 K/mm3 (140-440); Red Blood Count 4.25 M/mm3 (3.65-5.03)
[2020-10-09 08:52] LABS: Blood Urea Nitrogen 5 mg/dL (9-20); Calcium 8.1 mg/dL (8.4-10.2); Hemolysis Index 2
[2020-10-09 09:03] LABS: BUN/Creatinine Ratio 8
[2020-10-09] MEDS: PANTOPRAZOLE 40 MG INJ IV SCH (09:06)
[2020-10-09] MEDS: HYDROmorphone 1 MG/1 ML INJ IV PRN ×3 (09:06→17:55)
--- NOTE | 2020-10-09 11:46 | Gastroenterology Consultation ---
History of Present Illness - Reason for Consult Consult date: 10/09/20 Acute pancreatitis Requesting physician: MAUREEN JUNIOR - History of Present Illness This pleasant 40-year-old gentleman with a history of pancreatitis and DVT who presents with abdominal pain Patient reports that approximately 3 days ago he developed severe epigastric abdominal pain sharp, radiating to the back, worse with eating better with nothing associated with nausea. He believes it was brought on by eating fried food. He reports not having alcohol recently. He reports his last drink of alcohol was approximately 2 to 3 weeks ago. He does report smoking approximately 2 cigars daily. He does have a history of acute pancreatitis which is felt to be alcohol related he was last seen in [facility] in 2023 alcoholic pancreatitis. He was followed by one of my colleagues, Dr. Michael Quiroz, and underwent an outpatient EGD as the patient was still having abdominal pain and had thickening of the stomach on the CAT scan from 2019. The EGD showed severe gastritis and likely Jaylin esophagitis for which patient was treated with Diflucan as well as twice daily pantoprazole. Patient reports that his symptoms resolved and he had been doing very well until 3 days ago Of note, he denies any new medications, he denies any recent abdominal trauma. CT abdomen, acute pancreatitis with possible pseudocyst, reviewed Obtained/updated/reviewed patient's current medications Past History Past Medical History: DVT (History of DVT), other (History of pancreatitis) Past Surgical History: Other (Removal of blood clots 2019) Social history: smoking. denies: alcohol abuse, prescription drug abuse Family history: no significant family history Medications and Allergies Allergies Allergy/AdvReac Type Severity Reaction Status Date / Time No Known Allergies Allergy Unverified 07/01/17 14:35 Home Medications Medication Instructions Recorded Confirmed Last Taken Type Acetaminophen/Codeine [Tylenol 1 tab PO Q6H PRN 5 Days #20 tab 07/01/17 10/08/20 Unknown Rx /Codeine # 3 tab] Ibuprofen [Motrin] 800 mg PO Q8HR PRN 7 Days #21 07/01/17 10/08/20 Unknown Rx tablet Penicillin V Potassium 500 mg PO Q8H 10 Days #30 tablet 07/01/17 10/08/20 Unknown Rx Active Meds: Active Medications Hydromorphone HCl (Hydromorphone 1 Mg/1 Ml Inj) 0.5 mg IV ONCE PRN PRN Reason: Pain , Severe (7-10) Last Admin: 10/09/20 09:06 Dose: 0.5 mg Documented by: Sodium Chloride (Nacl 0.9% 1000 Ml) 1,000 mls @ 100 mls/hr IV DIRECT LALITA Last Admin: 10/09/20 05:30 Dose: 100 mls/hr Documented by: Morphine Sulfate (Morphine 2 Mg/1 Ml Inj) 2 mg IV Q4H PRN PRN Reason: Pain, Moderate (4-6) Last Admin: 10/09/20 05:26 Dose: 2 mg Documented by: Ondansetron HCl (Ondansetron 4 Mg/2 Ml Inj) 4 mg IV Q4H PRN PRN Reason: Nausea And Vomiting Pantoprazole Sodium (Pantoprazole 40 Mg Inj) 40 mg IV QDAY [facility] Last Admin: 10/09/20 09:06 Dose: 40 mg Documented by: Review of Systems - Review of Systems All systems: negative (10 Systems reviewed and negative except as mentioned a maxim in the history of present illness) Exam - Constitutional Vital Signs: Temp Pulse Resp BP Pulse Ox 98.2 F 96 H 18 124/66 94 10/09/20 08:03 10/09/20 08:03 10/09/20 09:30 10/09/20 08:03 10/09/20 08:03 General appearance: no acute distress - EENT Eyes: EOM intact ENT: hearing intact - Neck Neck: supple - Respiratory Respiratory effort: normal Respiratory: bilateral: CTA - Cardiovascular Rhythm: regular - Gastrointestinal General gastrointestinal: Present: soft, tender - Integumentary Integumentary: Present: dry - Musculoskeletal Musculoskeletal: normal - Neurologic Neurological: alert and oriented x3 - Psychiatric Psychiatric: appropriate mood/affect - Labs CBC & Chem 7: 10/09/20 08:10 10/09/20 08:10 Lab Results: Laboratory Results - last 24 hr 10/09/20 10/09/20 08:10 08:10 WBC 10.7 RBC 4.25 Hgb 13.9 Hct 40.7 MCV 96 H MCH 33 H MCHC 34 RDW 16.0 H Plt Count 263 Lymph % (Auto) 7.5 L [place] % (Auto) 9.9 H Eos % (Auto) 4.8 H Baso % (Auto) 0.3 Lymph # (Auto) 0.8 L [place] # (Auto) 1.1 H Eos # (Auto) 0.5 H Baso # (Auto) 0.0 Seg Neutrophils % 77.5 H Seg Neutrophils # 8.3 H Sodium 134 L Potassium 3.4 L Chloride 99.0 Carbon Dioxide 32 H Anion Gap 6 BUN 5 L Creatinine 0.6 L Estimated GFR > 60 BUN/Creatinine Ratio 8 Glucose 98 Calcium 8.1 L Amylase 542 H Lipase 507 H Assessment and Plan * Patient gradually improving, continue hydration and advance diet as tolerated, recommend changing pain medication to oral *If patient tolerates soft mechanical diet and pain controlled with oral medication, can discharge with outpatient follow-up, likely tomorrow morning Patient presents with acute pancreatitis. Symptoms starting to clinically im proved with hydration and as needed pain medication. Etiology unclear as patient has not had any recent alcohol per his report. Differential diagnosis therefore includes gallstone, though none seen on imaging and LFTs do not indicate gallstone pancreatitis, autoimmune, pancreatic lesion induced pancreatitis, tobacco related, alcohol-related if patient has not been forthcoming with recent alcohol intake - Patient Problems (1) Acute pancreatitis Current Visit: Yes Status: Acute (2) Pancreatic pseudocyst Current Visit: Yes Status: Acute
[2020-10-09] MEDS ORDERED: POTASSIUM CHLORIDE ER 20 MEQ TAB PO ONE (13:00)
--- NOTE | 2020-10-09 14:29 | Progress Note ---
Assessment and Plan Assessment and plan: --Severe acute pancreatitis; Advance diet as tolerated Check abdominal ultrasound to rule out Gallstone pancreatitis if needed Lipase amylase trending down Follow GI evaluation and recommendations --Possible pancreatic pseudocyst; Supportive care, GI and surgery consult No surgical intervention, conservative management --Hyponatremia; Normal saline IV fluids Mild improvement of sodium levels closely monitor --Hypokalemia; Replenish with KCl Monitor electrolytes --Leukocytosis; resolved Due to inflammatory process acute pancreatitis --Dehydration; slightly improved IV fluids, supportive care Clear liquids advance as tolerated --Polycythemia; resolved Elevated H&H Probably secondary to dehydration --Ongoing tobacco use; Smoking cessation Nicotine patch as needed Closely monitor patient and adjust management as needed Plan of care reviewed with the patient and his nurse GI and surgical evaluation and recommendations noted and appreciated 10/08/2020; patient's amylase lipase trending down Still complains of some abdominal pain, tolerating clear liquids GI surgery following 10/09/2020; patient's symptoms slightly improved, GI evaluation noted Advance diet as tolerated History Interval history: I have seen and examined the patient at the bedside Patient's chart and medications reviewed Patient feels slightly better Amylase and lipase levels trending down Surgery started clear to full liquid diet as tolerated Patient had very minimal pain abdomen ,intermittent Vital signs noted Hospitalist Physical - Constitutional Vitals: Temp Pulse Resp BP Pulse Ox 98.5 F 96 H 20 129/79 98 10/09/20 11:53 10/09/20 11:53 10/09/20 13:34 10/09/20 11:53 10/09/20 11:53 General appearance: Present: no acute distress, well-nourished - EENT Eyes: Present: PERRL, EOM intact - Neck Neck: Present: supple, normal ROM - Respiratory Respiratory effort: normal Respiratory: bilateral: diminished, rhonchi, negative: rales, wheezing - Cardiovascular Rhythm: regular Heart Sounds: Present: S1 & S2 - Extremities Extremities: no ischemia, No edema - Abdominal General gastrointestinal: soft, non-tender, non-distended - Integumentary Integumentary: Present: clear, warm - Psychiatric Psychiatric: appropriate mood/affect, cooperative - Neurologic Neurologic: CNII-XII intact, moves all extremities Results - Labs CBC & Chem 7: 10/09/20 08:10 10/09/20 08:10 Labs: Laboratory Last Values WBC 10.7 K/mm3 (4.5-11.0) 10/09/20 08:10 RBC 4.25 M/mm3 (3.65-5.03) 10/09/20 08:10 Hgb 13.9 gm/dl (11.8-15.2) 10/09/20 08:10 Hct 40.7 % (35.5-45.6) 10/09/20 08:10 MCV 96 fl (84-94) H 10/09/20 08:10 MCH 33 pg (28-32) H 10/09/20 08:10 MCHC 34 % (32-34) 10/09/20 08:10 RDW 16.0 % (13.2-15.2) H 10/09/20 08:10 Plt Count 263 K/mm3 (140-440) 10/09/20 08:10 Lymph % (Auto) 7.5 % (13.4-35.0) L 10/09/20 08:10 [place] % (Auto) 9.9 % (0.0-7.3) H 10/09/20 08:10 Eos % (Auto) 4.8 % (0.0-4.3) H 10/09/20 08:10 Baso % (Auto) 0.3 % (0.0-1.8) 10/09/20 08:10 Lymph # (Auto) 0.8 K/mm3 (1.2-5.4) L 10/09/20 08:10 [place] # (Auto) 1.1 K/mm3 (0.0-0.8) H 10/09/20 08:10 Eos # (Auto) 0.5 K/mm3 (0.0-0.4) H 10/09/20 08:10 Baso # (Auto) 0.0 K/mm3 (0.0-0.1) 10/09/20 08:10 Seg Neutrophils % 77.5 % (40.0-70.0) H 10/09/20 08:10 Seg Neutrophils # 8.3 K/mm3 (1.8-7.7) H 10/09/20 08:10 Sodium 134 mmol/L (137-145) L 10/09/20 08:10 Potassium 3.4 mmol/L (3.6-5.0) L 10/09/20 08:10 Chloride 99.0 mmol/L (98-107) 10/09/20 08:10 Carbon Dioxide 32 mmol/L (22-30) H 10/09/20 08:10 Anion Gap 6 mmol/L 10/09/20 08:10 BUN 5 mg/dL (9-20) L 10/09/20 08:10 Creatinine 0.6 mg/dL (0.8-1.3) L 10/09/20 08:10 Estimated GFR > 60 ml/min 10/09/20 08:10 BUN/Creatinine Ratio 8 % 10/09/20 08:10 Glucose 98 mg/dL (75-100) 10/09/20 08:10 Calcium 8.1 mg/dL (8.4-10.2) L 10/09/20 08:10 Total Bilirubin 0.40 mg/dL (0.1-1.2) 10/08/20 06:05 Direct Bilirubin < 0.2 mg/dL (0-0.2) 10/07/20 07:46 Indirect Bilirubin 0.3 mg/dL 10/07/20 07:46 AST 7 units/L (5-40) 10/08/20 06:05 ALT 11 units/L (7-56) 10/08/20 06:05 Alkaline Phosphatase 100 units/L (35-129) 10/08/20 06:05 Total Protein 5.8 g/dL (6.3-8.2) L 10/08/20 06:05 Albumin 3.0 g/dL (3.9-5) L 10/08/20 06:05 Albumin/Globulin Ratio 1.1 % 10/08/20 06:05 Amylase 542 units/L (27-131) H 10/09/20 08:10 Lipase 507 units/L (13-60) H 10/09/20 08:10 Morris/IV: Voiding Method Toilet Active Medications - Current Medications Current Medications: Generic Name Dose Route Start Last Admin Trade Name Freq PRN Reason Stop Dose Admin Hydromorphone HCl 0.5 mg 10/07/20 12:10 10/09/20 13:34 Hydromorphone 1 Mg/1 Ml Inj IV 0.5 mg ONCE PRN Administration Pain , Severe (7-10) Sodium Chloride 1,000 mls @ 100 mls/hr 10/07/20 13:30 10/09/20 05:30 Nacl 0.9% 1000 Ml IV 100 mls/hr DIRECT LALITA Administration Morphine Sulfate 2 mg 10/07/20 14:00 10/09/20 05:26 Morphine 2 Mg/1 Ml Inj IV 2 mg Q4H PRN Administration Pain, Moderate (4-6) Ondansetron HCl 4 mg 10/07/20 16:00 Ondansetron 4 Mg/2 Ml Inj IV Q4H PRN Nausea And Vomiting Pantoprazole Sodium 40 mg 10/08/20 10:00 10/09/20 09:06 Pantoprazole 40 Mg Inj IV 40 mg QDAY LALITA Administration
--- NOTE | 2020-10-09 18:22 | Progress Note ---
Assessment and Plan - Patient Problems (1) Chronic alcoholic pancreatitis Current Visit: Yes Status: Acute Plan to address problem: 1) FLD 2) Agree with GI assessment. Subjective Date of service: 10/09/20 Patient Reports: Positive: feels better, tolerating liquids well Objective Vital Signs - 12hr 10/09/20 10/09/20 10/09/20 08:03 09:06 09:30 Temperature 98.2 F Pulse Rate 96 H Respiratory 20 20 Rate Respiratory 18 Rate [Abdomen] Blood Pressure Blood Pressure 124/66 [Left] O2 Sat by Pulse 94 Oximetry 10/09/20 10/09/20 10/09/20 11:53 13:34 17:55 Temperature 98.5 F Pulse Rate 96 H Respiratory 18 20 18 Rate Respiratory Rate [Abdomen] Blood Pressure 129/79 Blood Pressure [Left] O2 Sat by Pulse 98 Oximetry - Abdomen [id number] 4, [id number]_[id number] 6, [id number]_[id number] 8 Hernia: none - Labs 10/09/20 08:10 10/09/20 08:10 Diabetes panel 10/09/20 Range/Units 08:10 Sodium 134 L (137-145) mmol/L Potassium 3.4 L (3.6-5.0) mmol/L Chloride 99.0 (98-107) mmol/L Carbon Dioxide 32 H (22-30) mmol/L BUN 5 L (9-20) mg/dL Creatinine 0.6 L (0.8-1.3) mg/dL Glucose 98 (75-100) mg/dL Calcium 8.1 L (8.4-10.2) mg/dL Calcium panel 10/09/20 Range/Units 08:10 Calcium 8.1 L (8.4-10.2) mg/dL Pituitary panel 10/09/20 Range/Units 08:10 Sodium 134 L (137-145) mmol/L Potassium 3.4 L (3.6-5.0) mmol/L Chloride 99.0 (98-107) mmol/L Carbon Dioxide 32 H (22-30) mmol/L BUN 5 L (9-20) mg/dL Creatinine 0.6 L (0.8-1.3) mg/dL Glucose 98 (75-100) mg/dL Calcium 8.1 L (8.4-10.2) mg/dL Adrenal panel 10/09/20 Range/Units 08:10 Sodium 134 L (137-145) mmol/L Potassium 3.4 L (3.6-5.0) mmol/L Chloride 99.0 (98-107) mmol/L Carbon Dioxide 32 H (22-30) mmol/L BUN 5 L (9-20) mg/dL Creatinine 0.6 L (0.8-1.3) mg/dL Glucose 98 (75-100) mg/dL Calcium 8.1 L (8.4-10.2) mg/dL
[2020-10-10] MEDS: MORPHINE 2 MG/1 ML INJ IV PRN ×2 (01:40→06:02)
[2020-10-10] MEDS: SODIUM CHLORIDE 0.9% 1000 ML 1,000 ML IV SCH (01:48)
[2020-10-10] MEDS ORDERED: diphenhydrAMINE 50 MG/ML VIAL IV ONE ×2 (02:17→21:49)
[2020-10-10 07:45] LABS: Blood Urea Nitrogen 4 mg/dL (9-20); Calcium 8.6 mg/dL (8.4-10.2); Hemolysis Index 5
[2020-10-10 08:16] LABS: BUN/Creatinine Ratio 7
--- NOTE | 2020-10-10 08:20 | Gastroenterology Progress Note ---
Assessment and Plan * Patient reports that symptoms are much worse today, suspect just needs more hydration and pain medication and that his symptoms will overall continue to improve over the next few days * Therefore recommend increase pain medication to 0.5 mg Dilaudid as needed as nurse reports that did help his pain * Continue IV hydration and I will give a one-time fluid bolus * I will continue to monitor and follow with you daily; hopefully patient will improve over the course the day and can consider discharge Saturday versus Saturday based upon clinical improvement Patient presents with acute pancreatitis. Symptoms starting to clinically im proved with hydration and as needed pain medication. Etiology unclear as patient has not had any recent alcohol per his report. Differential diagnosis therefore includes gallstone, though none seen on imaging and LFTs do not indicate gallstone pancreatitis, autoimmune, pancreatic lesion induced pancreatitis, tobacco related, alcohol-related if patient has not been forthcoming with recent alcohol intake - Patient Problems (1) Acute pancreatitis Current Visit: Yes Status: Acute (2) Pancreatic pseudocyst Current Visit: Yes Status: Acute Subjective Date of service: 10/10/20 Principal diagnosis: Pancreatitis Interval history: Patient reports abdominal pain is worsening He reports abdominal pain is severe epigastric constant not alleviated by morphine better with nothing worse with palpation Patient denies smoking any tobacco products since admission (he still smells strongly of tobacco, he reports the smell is likely from his bag which had tobac co in it Objective - Constitutional Vitals: Temp Pulse Resp BP Pulse Ox 98.1 F 98 H 18 127/78 98 10/10/20 04:35 10/10/20 04:35 10/10/20 04:35 10/10/20 04:35 10/10/20 04:35 General appearance: no acute distress - EENT ENT: hearing intact - Neck Neck: supple - Respiratory Respiratory effort: normal - Cardiovascular Rhythm: regular - Gastrointestinal General gastrointestinal: Present: soft, tender (Significant epigastric tenderness to palpation) - Integumentary Integumentary: Present: dry - Neurologic Neurological: alert and oriented x3 - Psychiatric Psychiatric: appropriate mood/affect - Labs CBC & Chem 7: 10/09/20 08:10 10/10/20 05:53 Labs: Laboratory Results - last 24 hr 10/09/20 10/09/20 10/10/20 08:10 08:10 05:53 WBC 10.7 RBC 4.25 Hgb 13.9 Hct 40.7 MCV 96 H MCH 33 H MCHC 34 RDW 16.0 H Plt Count 263 Lymph % (Auto) 7.5 L [place] % (Auto) 9.9 H Eos % (Auto) 4.8 H Baso % (Auto) 0.3 Lymph # (Auto) 0.8 L [place] # (Auto) 1.1 H Eos # (Auto) 0.5 H Baso # (Auto) 0.0 Seg Neutrophils % 77.5 H Seg Neutrophils # 8.3 H Sodium 134 L 135 L Potassium 3.4 L 3.6 Chloride 99.0 100.0 Carbon Dioxide 32 H 28 Anion Gap 6 11 BUN 5 L 4 L Creatinine 0.6 L Estimated GFR > 60 BUN/Creatinine Ratio 8 Glucose 98 118 H Calcium 8.1 L 8.6 Magnesium 1.80 Amylase 542 H 659 H Lipase 507 H
[2020-10-10] MEDS ORDERED: LACTATED RINGERS 1,000 ML IV ONE (08:21)
[2020-10-10] MEDS: PANTOPRAZOLE 40 MG INJ IV SCH (09:25)
[2020-10-10] MEDS: HYDROmorphone 1 MG/1 ML INJ IV PRN ×4 (09:30→21:20)
--- NOTE | 2020-10-10 15:53 | Progress Note ---
Assessment and Plan - Patient Problems (1) Chronic alcoholic pancreatitis Current Visit: Yes Status: Acute Plan to address problem: 1) I agree with GI recommendations. 2) Repeat CBC and lipase today. Subjective Date of service: 10/10/20 Patient Reports: Positive: still having pain Objective Vital Signs - 12hr 10/10/20 10/10/20 10/10/20 04:35 07:47 09:30 Temperature 98.1 F 99.0 F Pulse Rate 98 H 90 Respiratory 18 18 20 Rate Respiratory Rate [Abdomen] Blood Pressure 128/93 Blood Pressure 127/78 [Left] O2 Sat by Pulse 98 98 Oximetry 10/10/20 10/10/20 10:00 11:43 Temperature 98.6 F Pulse Rate 83 Respiratory 18 Rate Respiratory 18 Rate [Abdomen] Blood Pressure 130/88 Blood Pressure [Left] O2 Sat by Pulse 96 Oximetry - Abdomen soft, bowel sounds hypoactive (Mild epigastric tenderness without rebound or guarding.) - Labs 10/09/20 08:10 10/10/20 05:53 Diabetes panel 10/10/20 Range/Units 05:53 Sodium 135 L (137-145) mmol/L Potassium 3.6 (3.6-5.0) mmol/L Chloride 100.0 (98-107) mmol/L Carbon Dioxide 28 (22-30) mmol/L BUN 4 L (9-20) mg/dL Creatinine 0.6 L (0.8-1.3) mg/dL Glucose 118 H (75-100) mg/dL Calcium 8.6 (8.4-10.2) mg/dL Calcium panel 10/10/20 Range/Units 05:53 Calcium 8.6 (8.4-10.2) mg/dL Pituitary panel 10/10/20 Range/Units 05:53 Sodium 135 L (137-145) mmol/L Potassium 3.6 (3.6-5.0) mmol/L Chloride 100.0 (98-107) mmol/L Carbon Dioxide 28 (22-30) mmol/L BUN 4 L (9-20) mg/dL Creatinine 0.6 L (0.8-1.3) mg/dL Glucose 118 H (75-100) mg/dL Calcium 8.6 (8.4-10.2) mg/dL Adrenal panel 10/10/20 Range/Units 05:53 Sodium 135 L (137-145) mmol/L Potassium 3.6 (3.6-5.0) mmol/L Chloride 100.0 (98-107) mmol/L Carbon Dioxide 28 (22-30) mmol/L BUN 4 L (9-20) mg/dL Creatinine 0.6 L (0.8-1.3) mg/dL Glucose 118 H (75-100) mg/dL Calcium 8.6 (8.4-10.2) mg/dL
[2020-10-10 16:45] LABS: Basophils % (Auto) 0.2 % (0.0-1.8); Eosinophils # (Auto) 0.3 K/mm3 (0.0-0.4); Eosinophils % (Auto) 2.9 % (0.0-4.3); Hemoglobin 13.1 gm/dl (11.8-15.2); Lymphocytes # (Auto) 0.8 K/mm3 (1.2-5.4); Lymphocytes % (Auto) 7.9 % (13.4-35.0); Mean Corpuscular HGB Conc 34 % (32-34); Mean Corpuscular Volume 95 fl (84-94); Monocytes # (Auto) 0.9 K/mm3 (0.0-0.8); Monocytes % (Auto) 8.6 % (0.0-7.3); Platelet Count 292 K/mm3 (140-440); Red Blood Count 3.98 M/mm3 (3.65-5.03); Red Cell Distribution Width 15.7 % (13.2-15.2)
--- NOTE | 2020-10-10 18:49 | Progress Note ---
Assessment and Plan Assessment and plan: --Severe acute pancreatitis; Advance diet as tolerated Lipase amylase trended up today Patient also has mild abdominal pain Pain medications, GI surgery following --Possible pancreatic pseudocyst; Supportive care, GI and surgery consult No surgical intervention, conservative management --Hyponatremia; Normal saline IV fluids Mild improvement of sodium levels closely monitor --Hypokalemia; Replenish with KCl Monitor electrolytes --Leukocytosis; resolved Due to inflammatory process acute pancreatitis --Dehydration; slightly improved IV fluids, supportive care Clear liquids advance as tolerated --Polycythemia; resolved Elevated H&H Probably secondary to dehydration --Ongoing tobacco use; Smoking cessation Nicotine patch as needed Closely monitor patient and adjust management as needed Plan of care reviewed with the patient and his nurse GI and surgical evaluation and recommendations noted and appreciated 10/08/2020; patient's amylase lipase trending down Still complains of some abdominal pain, tolerating clear liquids GI surgery following 10/09/2020; patient's symptoms slightly improved, GI evaluation noted Advance diet as tolerated 10/10/2020; today amylase and lipase were trending up Patient has abdominal pain, increased pain medications Closely monitor, surgery GI follow-up History Interval history: I have seen and examined the patient at the bedside Patient's chart and medications reviewed No new events recorded by the nursing staff Patient complains of mild abdominal pain Lipase was trending down however today it went up to 700 Vital signs noted Hospitalist Physical - Constitutional Vitals: Temp Pulse Resp BP Pulse Ox 98.9 F 84 18 134/88 98 10/10/20 15:45 10/10/20 15:45 10/10/20 15:45 10/10/20 15:45 10/10/20 15:45 General appearance: Present: no acute distress, well-nourished - EENT Eyes: Present: PERRL, EOM intact - Neck Neck: Present: supple, normal ROM - Respiratory Respiratory effort: normal Respiratory: bilateral: diminished, negative: rales, rhonchi, wheezing - Cardiovascular Rhythm: regular Heart Sounds: Present: S1 & S2 - Extremities Extremities: no ischemia, No edema - Abdominal General gastrointestinal: soft, tender (Mild tenderness, no guarding no rigidity), non-distended, normal bowel sounds - Integumentary Integumentary: Present: clear, warm - Psychiatric Psychiatric: appropriate mood/affect, cooperative - Neurologic Neurologic: CNII-XII intact, moves all extremities Results - Labs CBC & Chem 7: 10/10/20 16:24 10/10/20 05:53 Labs: Laboratory Last Values WBC 10.1 K/mm3 (4.5-11.0) 10/10/20 16:24 RBC 3.98 M/mm3 (3.65-5.03) 10/10/20 16:24 Hgb 13.1 gm/dl (11.8-15.2) 10/10/20 16:24 Hct 38.0 % (35.5-45.6) 10/10/20 16:24 MCV 95 fl (84-94) H 10/10/20 16:24 MCH 33 pg (28-32) H 10/10/20 16:24 MCHC 34 % (32-34) 10/10/20 16:24 RDW 15.7 % (13.2-15.2) H 10/10/20 16:24 Plt Count 292 K/mm3 (140-440) 10/10/20 16:24 Lymph % (Auto) 7.9 % (13.4-35.0) L 10/10/20 16:24 [place] % (Auto) 8.6 % (0.0-7.3) H 10/10/20 16:24 Eos % (Auto) 2.9 % (0.0-4.3) 10/10/20 16:24 Baso % (Auto) 0.2 % (0.0-1.8) 10/10/20 16:24 Lymph # (Auto) 0.8 K/mm3 (1.2-5.4) L 10/10/20 16:24 [place] # (Auto) 0.9 K/mm3 (0.0-0.8) H 10/10/20 16:24 Eos # (Auto) 0.3 K/mm3 (0.0-0.4) 10/10/20 16:24 Baso # (Auto) 0.0 K/mm3 (0.0-0.1) 10/10/20 16:24 Seg Neutrophils % 80.4 % (40.0-70.0) H 10/10/20 16:24 Seg Neutrophils # 8.1 K/mm3 (1.8-7.7) H 10/10/20 16:24 Sodium 135 mmol/L (137-145) L 10/10/20 05:53 Potassium 3.6 mmol/L (3.6-5.0) 10/10/20 05:53 Chloride 100.0 mmol/L (98-107) 10/10/20 05:53 Carbon Dioxide 28 mmol/L (22-30) 10/10/20 05:53 Anion Gap 11 mmol/L 10/10/20 05:53 BUN 4 mg/dL (9-20) L 10/10/20 05:53 Creatinine 0.6 mg/dL (0.8-1.3) L 10/10/20 05:53 Estimated GFR > 60 ml/min 10/10/20 05:53 BUN/Creatinine Ratio 7 % 10/10/20 05:53 Glucose 118 mg/dL (75-100) H 10/10/20 05:53 Calcium 8.6 mg/dL (8.4-10.2) 10/10/20 05:53 Magnesium 1.80 mg/dL (1.7-2.3) 10/10/20 05:53 Total Bilirubin 0.40 mg/dL (0.1-1.2) 10/08/20 06:05 Direct Bilirubin < 0.2 mg/dL (0-0.2) 10/07/20 07:46 Indirect Bilirubin 0.3 mg/dL 10/07/20 07:46 AST 7 units/L (5-40) 10/08/20 06:05 ALT 11 units/L (7-56) 10/08/20 06:05 Alkaline Phosphatase 100 units/L (35-129) 10/08/20 06:05 Total Protein 5.8 g/dL (6.3-8.2) L 10/08/20 06:05 Albumin 3.0 g/dL (3.9-5) L 10/08/20 06:05 Albumin/Globulin Ratio 1.1 % 10/08/20 06:05 Amylase 659 units/L (27-131) H 10/10/20 05:53 Lipase 790 units/L (13-60) H 10/10/20 05:53 Morris/IV: Voiding Method Urinal Active Medications - Current Medications Current Medications: Generic Name Dose Route Start Last Admin Trade Name Freq PRN Reason Stop Dose Admin Hydromorphone HCl 1 mg 10/10/20 09:30 10/10/20 17:26 Hydromorphone 1 Mg/1 Ml Inj IV 1 mg Q4H PRN Administration Pain , Severe (7-10) Sodium Chloride 1,000 mls @ 50 mls/hr 10/07/20 13:30 10/10/20 01:48 Nacl 0.9% 1000 Ml IV 100 mls/hr DIRECT LALITA Administration Morphine Sulfate 2 mg 10/07/20 14:00 10/10/20 06:02 Morphine 2 Mg/1 Ml Inj IV 2 mg Q4H PRN Administration Pain, Moderate (4-6) Ondansetron HCl 4 mg 10/07/20 16:00 10/10/20 01:43 Ondansetron 4 Mg/2 Ml Inj IV 4 mg Q4H PRN Administration Nausea And Vomiting Pantoprazole Sodium 40 mg 10/08/20 10:00 10/10/20 09:25 Pantoprazole 40 Mg Inj IV 40 mg QDAY LALITA Administration
[2020-10-11] MEDS: HYDROmorphone 1 MG/1 ML INJ IV PRN ×6 (01:23→20:36)
--- NOTE | 2020-10-11 08:44 | Gastroenterology Progress Note ---
Assessment and Plan * Patient reports that symptoms are continuing to worsen. Patient reports last bowel movement was Saturday and he has worsening abdominal distention. Suspect he has worsening constipation contributing to his symptoms. Will give laxatives and monitor. If symptoms not improving may require upper endoscopy sure does not have underlying peptic ulcer disease * Continue IV hydration * I will continue to monitor and follow with you daily Patient presents with acute pancreatitis. Etiology unclear as patient has not had any recent alcohol per his report. Differential diagnosis therefore includes gallstone, though none seen on imaging and LFTs do not indicate gallstone pancreatitis, autoimmune, pancreatic lesion induced pancreatitis, tobacco related, alcohol-related if patient has not been forthcoming with recent alcohol intake - Patient Problems (1) Acute pancreatitis Current Visit: Yes Status: Acute (2) Pancreatic pseudocyst Current Visit: Yes Status: Acute Subjective Date of service: 10/11/20 Principal diagnosis: Pancreatitis Interval history: Patient reports abdominal pain is worsening again today, the pain is epigastric however he is also associated with diffuse abdominal distention and tenderness and pain. Cramping, slightly better with pain medication worse with eating and movement Objective - Constitutional Vitals: Temp Pulse Resp BP Pulse Ox 98.8 F 118 H 20 146/97 97 10/11/20 07:54 10/11/20 07:54 10/11/20 07:54 10/11/20 07:54 10/11/20 07:54 General appearance: no acute distress - EENT Eyes: EOM intact ENT: hearing intact - Neck Neck: supple - Respiratory Respiratory effort: normal - Cardiovascular Rhythm: regular - Gastrointestinal General gastrointestinal: Present: other (Positive bowel sounds, moderately distended, tender to palpation diffusely) - Labs CBC & Chem 7: 10/10/20 16:24 10/10/20 05:53 Labs: Laboratory Results - last 24 hr 10/10/20 10/11/20 16:24 06:18 WBC 10.1 RBC 3.98 Hgb 13.1 Hct 38.0 MCV 95 H MCH 33 H MCHC 34 RDW 15.7 H Plt Count 292 Lymph % (Auto) 7.9 L [place] % (Auto) 8.6 H Eos % (Auto) 2.9 Baso % (Auto) 0.2 Lymph # (Auto) 0.8 L [place] # (Auto) 0.9 H Eos # (Auto) 0.3 Baso # (Auto) 0.0 Seg Neutrophils % 80.4 H Seg Neutrophils # 8.1 H Lipase 319 H
[2020-10-11] MEDS: POLYETHYLENE GLYCOL 3350 17 GM POWDER PO SCH ×2 (09:01→22:41)
[2020-10-11] MEDS: PANTOPRAZOLE 40 MG INJ IV SCH (09:01)
[2020-10-11] MEDS: DOCUSATE SODIUM 100 MG CAP PO SCH ×2 (09:01→22:41)
[2020-10-11] MEDS: SODIUM CHLORIDE 0.9% 1000 ML 1,000 ML IV SCH (09:10)
--- NOTE | 2020-10-11 11:33 | Progress Note ---
Assessment and Plan - Patient Problems (1) Chronic alcoholic pancreatitis Current Visit: Yes Status: Acute Plan to address problem: 1) Per GI Subjective Date of service: 10/11/20 Narrative: States his pain is without significant change. He does not want his diet advanced. Objective Vital Signs - 12hr 10/10/20 10/11/20 10/11/20 23:38 01:23 01:53 Temperature 98.6 F Pulse Rate 90 Respiratory 18 17 17 Rate Respiratory Rate [Abdomen] Blood Pressure 135/91 O2 Sat by Pulse 98 Oximetry 10/11/20 10/11/20 10/11/20 04:45 05:11 05:24 Temperature 98.3 F Pulse Rate 83 Respiratory 17 17 18 Rate Respiratory Rate [Abdomen] Blood Pressure 141/90 O2 Sat by Pulse 97 Oximetry 10/11/20 10/11/20 10/11/20 05:41 07:54 10:00 Temperature 98.8 F Pulse Rate 118 H Respiratory 17 20 Rate Respiratory 17 Rate [Abdomen] Blood Pressure 146/97 O2 Sat by Pulse 97 Oximetry - Abdomen soft, bowel sounds hypoactive (Minimally tender in the epigastrium without rebound or guarding.) - Labs 10/10/20 16:24 10/10/20 05:53
[2020-10-11] MEDS: MORPHINE 2 MG/1 ML INJ IV PRN (16:31)
--- NOTE | 2020-10-11 20:40 | Progress Note ---
Assessment and Plan Assessment and plan: --Severe acute pancreatitis; Advance diet as tolerated Lipase amylase trending down again today Patient continues to have abdominal pain Pain medications, GI ,surgery following --Constipation; stool softeners Probably due to pain medications, if no improvement MOM/lactulose or enema GI following --Possible pancreatic pseudocyst; Supportive care, GI and surgery consult No surgical intervention, conservative management --Hyponatremia; Normal saline IV fluids Mild improvement of sodium levels closely monitor --Hypokalemia; resolved --Leukocytosis; resolved --Dehydration; slightly improved IV fluids, supportive care Clear liquids advance as tolerated --Polycythemia; resolved Probably secondary to dehydration --Ongoing tobacco use; Smoking cessation consult Nicotine patch as needed Closely monitor patient and adjust management as needed Plan of care reviewed with the patient and his nurse GI and surgical evaluation and recommendations noted and appreciated 10/08/2020; patient's amylase lipase trending down Still complains of some abdominal pain, tolerating clear liquids GI surgery following 10/09/2020; patient's symptoms slightly improved, GI evaluation noted Advance diet as tolerated 10/10/2020; today amylase and lipase were trending up Patient has abdominal pain, increased pain medications Closely monitor, surgery GI follow-up 10/11/2020; patient complains of constipation Probably secondary to pain medications Stool softeners, enema if needed Possible discharge tomorrow Disposition per GI Hospitalist Physical - Constitutional Vitals: Temp Pulse Resp BP Pulse Ox 98.1 F 123 H 18 132/86 97 10/11/20 19:46 10/11/20 19:46 10/11/20 19:46 10/11/20 19:46 10/11/20 19:46 General appearance: Present: no acute distress, well-nourished - EENT Eyes: Present: PERRL, EOM intact - Neck Neck: Present: supple, normal ROM - Respiratory Respiratory effort: normal Respiratory: bilateral: diminished, negative: rales, rhonchi, wheezing - Cardiovascular Rhythm: regular Heart Sounds: Present: S1 & S2 - Extremities Extremities: no ischemia, No edema - Abdominal General gastrointestinal: soft, non-tender, non-distended, normal bowel sounds - Integumentary Integumentary: Present: clear, warm - Psychiatric Psychiatric: appropriate mood/affect, cooperative - Neurologic Neurologic: moves all extremities Results - Labs CBC & Chem 7: 10/10/20 16:24 10/10/20 05:53 Labs: Laboratory Last Values WBC 10.1 K/mm3 (4.5-11.0) 10/10/20 16:24 RBC 3.98 M/mm3 (3.65-5.03) 10/10/20 16:24 Hgb 13.1 gm/dl (11.8-15.2) 10/10/20 16:24 Hct 38.0 % (35.5-45.6) 10/10/20 16:24 MCV 95 fl (84-94) H 10/10/20 16:24 MCH 33 pg (28-32) H 10/10/20 16:24 MCHC 34 % (32-34) 10/10/20 16:24 RDW 15.7 % (13.2-15.2) H 10/10/20 16:24 Plt Count 292 K/mm3 (140-440) 10/10/20 16:24 Lymph % (Auto) 7.9 % (13.4-35.0) L 10/10/20 16:24 [place] % (Auto) 8.6 % (0.0-7.3) H 10/10/20 16:24 Eos % (Auto) 2.9 % (0.0-4.3) 10/10/20 16:24 Baso % (Auto) 0.2 % (0.0-1.8) 10/10/20 16:24 Lymph # (Auto) 0.8 K/mm3 (1.2-5.4) L 10/10/20 16:24 [place] # (Auto) 0.9 K/mm3 (0.0-0.8) H 10/10/20 16:24 Eos # (Auto) 0.3 K/mm3 (0.0-0.4) 10/10/20 16:24 Baso # (Auto) 0.0 K/mm3 (0.0-0.1) 10/10/20 16:24 Seg Neutrophils % 80.4 % (40.0-70.0) H 10/10/20 16:24 Seg Neutrophils # 8.1 K/mm3 (1.8-7.7) H 10/10/20 16:24 Sodium 135 mmol/L (137-145) L 10/10/20 05:53 Potassium 3.6 mmol/L (3.6-5.0) 10/10/20 05:53 Chloride 100.0 mmol/L (98-107) 10/10/20 05:53 Carbon Dioxide 28 mmol/L (22-30) 10/10/20 05:53 Anion Gap 11 mmol/L 10/10/20 05:53 BUN 4 mg/dL (9-20) L 10/10/20 05:53 Creatinine 0.6 mg/dL (0.8-1.3) L 10/10/20 05:53 Estimated GFR > 60 ml/min 10/10/20 05:53 BUN/Creatinine Ratio 7 % 10/10/20 05:53 Glucose 118 mg/dL (75-100) H 10/10/20 05:53 Calcium 8.6 mg/dL (8.4-10.2) 10/10/20 05:53 Magnesium 1.80 mg/dL (1.7-2.3) 10/10/20 05:53 Total Bilirubin 0.40 mg/dL (0.1-1.2) 10/08/20 06:05 Direct Bilirubin < 0.2 mg/dL (0-0.2) 10/07/20 07:46 Indirect Bilirubin 0.3 mg/dL 10/07/20 07:46 AST 7 units/L (5-40) 10/08/20 06:05 ALT 11 units/L (7-56) 10/08/20 06:05 Alkaline Phosphatase 100 units/L (35-129) 10/08/20 06:05 Total Protein 5.8 g/dL (6.3-8.2) L 10/08/20 06:05 Albumin 3.0 g/dL (3.9-5) L 10/08/20 06:05 Albumin/Globulin Ratio 1.1 % 10/08/20 06:05 Amylase 659 units/L (27-131) H 10/10/20 05:53 Lipase 319 units/L (13-60) H 10/11/20 06:18 Morris/IV: Voiding Method Toilet Active Medications - Current Medications Current Medications: Generic Name Dose Route Start Last Admin Trade Name Freq PRN Reason Stop Dose Admin Docusate Sodium 100 mg 10/11/20 10:00 10/11/20 09:01 Docusate Sodium 100 Mg Cap PO 100 mg BID LLAITA Administration Hydromorphone HCl 1 mg 10/10/20 09:30 10/11/20 13:00 Hydromorphone 1 Mg/1 Ml Inj IV 1 mg Q4H PRN Administration Pain , Severe (7-10) Sodium Chloride 1,000 mls @ 50 mls/hr 10/07/20 13:30 10/11/20 09:10 Nacl 0.9% 1000 Ml IV 100 mls/hr DIRECT LALITA Administration Morphine Sulfate 2 mg 10/07/20 14:00 10/11/20 16:31 Morphine 2 Mg/1 Ml Inj IV 2 mg Q4H PRN Administration Pain, Moderate (4-6) Ondansetron HCl 4 mg 10/07/20 16:00 10/10/20 01:43 Ondansetron 4 Mg/2 Ml Inj IV 4 mg Q4H PRN Administration Nausea And Vomiting Pantoprazole Sodium 40 mg 10/12/20 07:30 Pantoprazole 40 Mg Tab PO QDAC LALITA Polyethylene Glycol 17 gm 10/11/20 10:00 10/11/20 09:01 Polyethylene Glycol 3350 17 Gm Powder PO 17 gm BID LALITA Administration
[2020-10-12] MEDS: HYDROmorphone 1 MG/1 ML INJ IV PRN ×2 (00:38→04:31)
[2020-10-12] MEDS ORDERED: PANTOPRAZOLE 40 MG TAB PO SCH (07:30)
[2020-10-12 07:45] VITALS: BP 133/85
--- NOTE | 2020-10-12 08:08 | Progress Note ---
Assessment and Plan Assessment and plan: --Severe acute pancreatitis; Advance diet as tolerated Lipase amylase trending down again today Patient continues to have abdominal pain Pain medications, GI ,surgery following --SIRS/without organ dysfunction, present on admission --Constipation; stool softeners Probably due to pain medications, if no improvement MOM/lactulose or enema GI following --Possible pancreatic pseudocyst; Supportive care, GI and surgery consult No surgical intervention, conservative management --Hyponatremia; Normal saline IV fluids Mild improvement of sodium levels closely monitor --Hypokalemia; resolved --Leukocytosis; resolved --Dehydration; slightly improved IV fluids, supportive care Clear liquids advance as tolerated --Polycythemia; resolved Probably secondary to dehydration --Ongoing tobacco use; Smoking cessation consult Nicotine patch as needed Closely monitor patient and adjust management as needed Plan of care reviewed with the patient and his nurse GI and surgical evaluation and recommendations noted and appreciated 10/08/2020; patient's amylase lipase trending down Still complains of some abdominal pain, tolerating clear liquids GI surgery following 10/09/2020; patient's symptoms slightly improved, GI evaluation noted Advance diet as tolerated 10/10/2020; today amylase and lipase were trending up Patient has abdominal pain, increased pain medications Closely monitor, surgery GI follow-up 10/11/2020; patient complains of constipation Probably secondary to pain medications Stool softeners, enema if needed Possible discharge tomorrow Disposition per GI Hospitalist Physical - Constitutional Vitals: Temp Pulse Resp BP Pulse Ox 98.1 F 104 H 18 133/85 98 10/12/20 07:15 10/12/20 07:15 10/12/20 07:15 10/12/20 07:15 10/12/20 07:15 General appearance: Present: no acute distress, well-nourished Results - Labs CBC & Chem 7: 10/10/20 16:24 10/10/20 05:53 Labs: Laboratory Last Values WBC 10.1 K/mm3 (4.5-11.0) 10/10/20 16:24 RBC 3.98 M/mm3 (3.65-5.03) 10/10/20 16:24 Hgb 13.1 gm/dl (11.8-15.2) 10/10/20 16:24 Hct 38.0 % (35.5-45.6) 10/10/20 16:24 MCV 95 fl (84-94) H 10/10/20 16:24 MCH 33 pg (28-32) H 10/10/20 16:24 MCHC 34 % (32-34) 10/10/20 16:24 RDW 15.7 % (13.2-15.2) H 10/10/20 16:24 Plt Count 292 K/mm3 (140-440) 10/10/20 16:24 Lymph % (Auto) 7.9 % (13.4-35.0) L 10/10/20 16:24 [place] % (Auto) 8.6 % (0.0-7.3) H 10/10/20 16:24 Eos % (Auto) 2.9 % (0.0-4.3) 10/10/20 16:24 Baso % (Auto) 0.2 % (0.0-1.8) 10/10/20 16:24 Lymph # (Auto) 0.8 K/mm3 (1.2-5.4) L 10/10/20 16:24 [place] # (Auto) 0.9 K/mm3 (0.0-0.8) H 10/10/20 16:24 Eos # (Auto) 0.3 K/mm3 (0.0-0.4) 10/10/20 16:24 Baso # (Auto) 0.0 K/mm3 (0.0-0.1) 10/10/20 16:24 Seg Neutrophils % 80.4 % (40.0-70.0) H 10/10/20 16:24 Seg Neutrophils # 8.1 K/mm3 (1.8-7.7) H 10/10/20 16:24 Sodium 135 mmol/L (137-145) L 10/10/20 05:53 Potassium 3.6 mmol/L (3.6-5.0) 10/10/20 05:53 Chloride 100.0 mmol/L (98-107) 10/10/20 05:53 Carbon Dioxide 28 mmol/L (22-30) 10/10/20 05:53 Anion Gap 11 mmol/L 10/10/20 05:53 BUN 4 mg/dL (9-20) L 10/10/20 05:53 Creatinine 0.6 mg/dL (0.8-1.3) L 10/10/20 05:53 Estimated GFR > 60 ml/min 10/10/20 05:53 BUN/Creatinine Ratio 7 % 10/10/20 05:53 Glucose 118 mg/dL (75-100) H 10/10/20 05:53 Calcium 8.6 mg/dL (8.4-10.2) 10/10/20 05:53 Magnesium 1.80 mg/dL (1.7-2.3) 10/10/20 05:53 Total Bilirubin 0.40 mg/dL (0.1-1.2) 10/08/20 06:05 Direct Bilirubin < 0.2 mg/dL (0-0.2) 10/07/20 07:46 Indirect Bilirubin 0.3 mg/dL 10/07/20 07:46 AST 7 units/L (5-40) 10/08/20 06:05 ALT 11 units/L (7-56) 10/08/20 06:05 Alkaline Phosphatase 100 units/L (35-129) 10/08/20 06:05 Total Protein 5.8 g/dL (6.3-8.2) L 10/08/20 06:05 Albumin 3.0 g/dL (3.9-5) L 10/08/20 06:05 Albumin/Globulin Ratio 1.1 % 10/08/20 06:05 Amylase 659 units/L (27-131) H 10/10/20 05:53 Lipase 267 units/L (13-60) H 10/12/20 05:45 Morris/IV: Voiding Method Toilet Active Medications - Current Medications Current Medications: Generic Name Dose Route Start Last Admin Trade Name Freq PRN Reason Stop Dose Admin Docusate Sodium 100 mg 10/11/20 10:00 10/11/20 22:41 Docusate Sodium 100 Mg Cap PO 100 mg BID LALITA Administration Hydromorphone HCl 1 mg 10/10/20 09:30 10/12/20 04:31 Hydromorphone 1 Mg/1 Ml Inj IV 1 mg Q4H PRN Administration Pain , Severe (7-10) Sodium Chloride 1,000 mls @ 50 mls/hr 10/07/20 13:30 10/11/20 09:10 Nacl 0.9% 1000 Ml IV 100 mls/hr DIRECT LALITA Administration Morphine Sulfate 2 mg 10/07/20 14:00 10/11/20 16:31 Morphine 2 Mg/1 Ml Inj IV 2 mg Q4H PRN Administration Pain, Moderate (4-6) Ondansetron HCl 4 mg 10/07/20 16:00 10/10/20 01:43 Ondansetron 4 Mg/2 Ml Inj IV 4 mg Q4H PRN Administration Nausea And Vomiting Pantoprazole Sodium 40 mg 10/12/20 07:30 Pantoprazole 40 Mg Tab PO QDAC LALITA Polyethylene Glycol 17 gm 10/11/20 10:00 10/11/20 22:41 Polyethylene Glycol 3350 17 Gm Powder PO 17 gm BID LALITA Administration
--- NOTE | 2020-10-12 08:30 | Discharge Summary ---
Providers - Providers Date of Admission: 10/07/20 15:50 Date of discharge: 10/12/20 Attending physician: MAUREEN JUNIOR 10/07/20 14:51 Consult to Physician [CONS] Routine Comment: Consulting Provider: SKY KRISHNAMURTHY Physician Instructions: Reason For Exam: Acute pancreatitis/pseudocyst 10/07/20 14:52 Consult to Physician [CONS] Routine Comment: Consulting Provider: JERE ESCALANTE Physician Instructions: Reason For Exam: Acute pancreatitis/? Pseudocyst Primary care physician: SCREW DOWN Hospitalization Condition: Fair Disposition: DC-01 TO HOME OR SELFCARE Time spent for discharge: 35 min Exam - Constitutional Vitals: Temp Pulse Resp BP Pulse Ox 98.1 F 104 H 18 133/85 98 10/12/20 07:15 10/12/20 07:15 10/12/20 07:15 10/12/20 07:15 10/12/20 07:15 Plan Activity: advance as tolerated Diet: other (Mechanical soft diet, advance as tolerated) Additional Instructions: Advance diet as tolerated. If you have worsening symptoms contact MD or go to emergency room. Advised to follow with your PMD ,surgeon Dr. Krishnamurthy and GI Dr. Miller per schedule Follow up with: PRIMARY CAREMD [Primary Care Provider] - 7 Days SKY KRISHNAMURTHY MD [Staff Physician] - 7 Days SAHIL MILLER MD [Staff Physician] - 14 Days Prescriptions: Docusate Sodium [Colace CAP] 100 mg PO BID #20 capsule polyethylene glycoL 3350 [Miralax 3350] 17 gm PO BID #30 powd.pack oxyCODONE /ACETAMINOPHEN [Percocet 5/325 mg] 1 tab PO Q8HR PRN 7 Days #21 tablet PRN Reason: Pain, Moderate (4-6) Pantoprazole [Protonix TAB] 40 mg PO QDAC #30 tablet Ondansetron [Zofran Odt] 4 mg PO Q8HR #15 tab.[email or web address]
[2020-10-12] MEDS ORDERED: MAGNESIUM HYDROXIDE (MOM) ORAL LIQD UDC PO NR (08:45)
--- NOTE | 2020-10-12 08:58 | Gastroenterology Progress Note ---
Assessment and Plan * Patient reports that symptoms are continuing to worsen. Patient reports last bowel movement was Saturday and he has worsening abdominal distention. Suspect he has worsening constipation contributing to his symptoms. Will give more laxa tives as well as an enema and monitor. * Continue IV hydration * I will continue to monitor and follow with you daily To review Patient presents with acute pancreatitis. Etiology unclear as patient has not had any recent alcohol per his report. Differential diagnosis therefore includes gallstone, though none seen on imaging and LFTs do not indicate gallstone pancreatitis, autoimmune, pancreatic lesion induced pancreatitis, tobacco related, alcohol-related if patient has not been forthcoming with recent alcohol intake - Patient Problems (1) Acute pancreatitis Current Visit: Yes Status: Acute (2) Pancreatic pseudocyst Current Visit: Yes Status: Acute Subjective Date of service: 10/12/20 Principal diagnosis: Pancreatitis Interval history: Patient reports abdominal pain is worsening again today, the pain is epigastric however he is also associated with diffuse abdominal distention and tenderness and pain. Despite medications yesterday he reports he is still not had a bowel movement cramping, slightly better with pain medication worse with eating and movement Objective - Constitutional Vitals: Temp Pulse Resp BP Pulse Ox 98.1 F 104 H 18 133/85 98 10/12/20 07:15 10/12/20 07:15 10/12/20 07:15 10/12/20 07:15 10/12/20 07:15 General appearance: no acute distress - EENT Eyes: EOM intact - Neck Neck: supple - Respiratory Respiratory effort: normal - Gastrointestinal General gastrointestinal: Present: tender, distended, hypoactive bowel sounds - Neurologic Neurological: alert and oriented x3 - Psychiatric Psychiatric: appropriate mood/affect - Labs CBC & Chem 7: 10/10/20 16:24 10/10/20 05:53 Labs: Laboratory Results - last 24 hr 10/12/20 05:45 Lipase 267 H
[2020-10-12] MEDS ORDERED: FLEET ENEMA PR NR (09:00)
[2020-10-12] MEDS ORDERED: oxyCODONE /ACETAMINOPHEN 5-325MG TAB PO PRN (09:00)
[2020-10-12] MEDS: POLYETHYLENE GLYCOL 3350 17 GM POWDER PO SCH (09:01)
[2020-10-12] MEDS: DOCUSATE SODIUM 100 MG CAP PO SCH (09:02)
[2020-10-12] MEDS: MORPHINE 2 MG/1 ML INJ IV PRN (09:02)
--- NOTE | 2020-10-12 09:50 | Progress Note ---
Assessment and Plan - Patient Problems (1) Chronic alcoholic pancreatitis Current Visit: Yes Status: Acute Plan to address problem: 1) Per GI recommendations. Subjective Date of service: 10/12/20 Patient Reports: Positive: no new complaints (GI note read. Pt on the toilet after an enema. He seems in NAD.) Objective Vital Signs - 12hr 10/11/20 10/11/20 10/12/20 22:00 23:18 00:38 Temperature 98.7 F Pulse Rate 109 H Respiratory 18 17 Rate Respiratory 17 Rate [Abdomen] Blood Pressure 144/94 O2 Sat by Pulse 97 Oximetry 10/12/20 10/12/20 10/12/20 01:08 04:31 04:44 Temperature 98.4 F Pulse Rate 108 H Respiratory 17 17 18 Rate Respiratory Rate [Abdomen] Blood Pressure 141/88 O2 Sat by Pulse 96 Oximetry 10/12/20 10/12/20 05:01 07:15 Temperature 98.1 F Pulse Rate 104 H Respiratory 17 18 Rate Respiratory Rate [Abdomen] Blood Pressure 133/85 O2 Sat by Pulse 98 Oximetry - Abdomen [id number] 4, PM_46_[id number] 6, [id number] 8 Hernia: none - Labs 10/10/20 16:24 10/10/20 05:53 - Imaging Additional Studies: Lipase is down to 267 today.
[2020-10-12] MEDS ORDERED: HYDROmorphone 1 MG/1 ML INJ IV ONE (17:00)
[2020-10-12] MEDS ORDERED: MAGNESIUM HYDROXIDE (MOM) ORAL LIQD UDC PO PRN (18:00)
== END 2020-10-12 19:10 | disposition home or self-care (01) | DRG 439 ==
LOC: ED 07:00 → 3B-SURG 10:27 → OBSVTOIN 15:50
PROVIDERS: ADMIT Internal Medicine; ATTEND Internal Medicine
DX: K85.90 Acute pancreatitis without necrosis or infection, unspecified (principal); E87.1 Hypo-osmolality and hyponatremia; K86.3 Pseudocyst of pancreas; R65.10 Systemic inflammatory response syndrome (SIRS) of non-infectious origin without acute organ dysfunction; E86.0 Dehydration; Z88.0 Allergy status to penicillin; Z88.8 Allergy status to other drugs, medicaments and biological substances; F17.200 Nicotine dependence, unspecified, uncomplicated; Z82.49 Family history of ischemic heart disease and other diseases of the circulatory system; E87.6 Hypokalemia; D75.1 Secondary polycythemia; K59.00 Constipation, unspecified; K86.0 Alcohol-induced chronic pancreatitis
CPT/HCPCS: 36415; 74177; 80048; 80053; 80076; 82150; 83690; 83735; 85025; 96361; 96365; 96375; 99406; G0378; C9113; J1170; J1200; J1885; J2060; J2270; J2405; J3480; J7030; J7120; Q9967